=== PATIENT | male | born 1950 | race Caucasian/White ===

== ENCOUNTER 2016-10-31 11:56 | Emergency (ER) | payer MEDICARE, OTHER ==
[2016-10-31 12:11] VITALS: BP 119/70
[2016-10-31] MEDS ORDERED: NORMAL SALINE 1,000 ML IV ONE (12:27)
--- OUTSIDE RECORDS SUMMARY | 2016-10-31 12:39 | XMS REPORT | Continuity of Care Document ---
:1950 Author Organization [facility] ([facility]) Address [address] [place] [address] Phone [phone] Care Team Providers Name Role Phone IshaElie Primary Care Provider [phone] Source Comments This disclosure is being made pursuant to the Care Everywhere program, applicable federal and state laws, and may not contain all informaitonavailable regarding this patient.[facility] ([facility]) Active Allergies and Adverse Reactions Allergen Noted Date Severity Reactions Comments Amoxicillin Urticaria (Hives) Current Medications Prescription Sig. Disp. Refills Start Date End Date Status levETIRAcetam (KEPPRA) Take 500 mg by Active 500 mg tablet mouth 2 times daily. Takes two 500mg tablets Q AM and three 500mg tablets Q PM. sildenafil (VIAGRA) 50 Take 50 mg by Active mg tablet mouth as needed. Take 1 hour prior to sexual activity. captopril 12.5 mg Take 12.5 mg by Active tablet mouth [address] 0.4 mg Active (NITROSTAT) 0.4 mg SL under the tongue tablet every 5 minutes as needed. MULTIVITAMIN PO Take 1 Tab by Active mouth daily. MULTIVITAMIN WITH Take by mouth. Active MINERALS (HAIR,SKIN & NAILS PO) omega-3 fatty acids 1 Take 2 g by mouth Active gram capsule 2 times daily. aspirin 81 mg EC tablet Take 81 mg by Active mouth daily. ascorbic acid (vitamin Take 500 mg by Active C) (VITAMIN C WITH EMILY mouth daily. 4 HIPS) 500 mg tablet daily escitalopram oxalate 10 Take 10 mg by Active mg tablet mouth daily. atorvastatin 40 mg Take 1 tablet (40 30 tablet 11 09/10/2016 Active tablet mg total) by mouth daily. Active Problems Problem Noted Date Coronary artery disease 02/27/2013 Essential hypertension, benign 02/27/2013 Chest pain 12/02/2012 Unspecified transient cerebral ischemia 05/17/2006 Unspecified intracranial hemorrhage 11/25/2005 Most Recent Encounters Date Type Specialty Providers Description 09/03/2016 Refill Heart and Vascular Anny Charles RN Dx: Hypercholesterolemia (Primary Dx) Social History Tobacco Use Types Packs/Day Years Used Date Former Smoker Cigarettes 2 16 Quit: 12/16/1980 Smokeless Tobacco: Never Used Alcohol Use Drinks/Week oz/Week Comments Yes 14 Cans of beer 7.0 Last Filed Vital Signs Vital Sign Reading Time Taken Blood Pressure 139/70 04/24/2016 10:26 AM CDT Pulse 68 04/24/2016 10:26 AM CDT Temperature 36.7 C (98.1 F) 03/23/2014 11:15 AM CDT Respiratory Rate 18 12/03/2012 8:46 AM CDT Height 1.728 m (5' 8.03") 03/23/2014 11:15 AM CDT Weight 90.7 kg (199 lb 15.3 oz) 04/24/2016 10:26 AM CDT Body Mass Index 30.38 04/24/2016 10:26 AM CDT Oxygen Saturation 97% 03/23/2014 11:15 AM CDT Plan of Care Health Maintenance Due Date Last Done Comments HCV Screening 1950 Hepatitis B Vaccine (1 of 3 - Primary Series) 1950 Tdap Vaccine 1960 Td Vaccine 1967 Colonoscopy 1999 Prostate Cancer Screening 1999 Zoster Vaccine 2009 Lipid Disorder Screening 05/18/2011 05/18/2006 Pneumococcal Vaccine (1 of 2 - PCV13) 2014 Influenza Vaccine: Seasonal (#1) 02/10/2016 Results from Last 3 Months Not on file
--- OUTSIDE RECORDS SUMMARY | 2016-10-31 12:39 | XMS REPORT | Continuity of Care Document ---
:1950 Author Organization [facility] [place] [address] Care Team Providers Name Role Phone Elie Vieira Primary Care Provider [phone] Source Comments This disclosure is being made pursuant to the [employer] program and maynot contain all information available regarding this patient.[facility] Active Allergies and Adverse Reactions Allergen Noted Date Severity Reactions Comments Amoxicillin 08/26/2016 Unknown Current Medications Be aware that medications may not be up to date as of this document. Alwaysverify current medications with the patient. Prescription Sig. Disp. Refills Start Date End Date Status lisinopril Take 10 mg by Active (PRINIVIL,ZESTRIL) mouth daily. 10 MG tablet escitalopram Take 10 mg by Active (LEXAPRO) 10 MG mouth daily. tablet levETIRAcetam Take 500 mg by Active (KEPPRA) 500 MG mouth 2 (two) tablet times daily. atorvastatin Take 40 mg by Active (LIPITOR) 40 MG mouth daily. tablet aspirin 81 MG EC Take 81 mg by Active tablet mouth daily. VOLTAREN 1 % GEL Apply 2 g 100 g 3 09/09/2016 Active topically 4 (four) times daily. traMADol (ULTRAM) TAKE ONE TABLET 90 tablet 0 10/21/2016 Active 50 MG tablet BY MOUTH THREE TIMES DAILY NEEDED FOR PAIN zolpidem (AMBIEN) Take 1 tablet 30 tablet 0 10/29/2016 Active 10 MG tablet (10 mg total) by mouth nightly as needed for Sleep. traMADol (ULTRAM) Take 1 tablet 90 tablet 0 08/20/2016 Discontinued 50 MG tablet (50 mg total) 7 by mouth 3 (three) times daily as needed for Pain. Active Problems Problem Noted Date Back pain 09/03/2016 Coronary artery disease Hypercholesterolemia Most Recent Encounters Date Type Specialty Providers Description 10/29/2016 Office Visit Family Medicine Elie Vieira, Coronary artery disease MD with angina pectoris, unspecified vessel or lesion type, unspecified whether [facility] or transplanted heart (HCC) (Primary Dx); Hypercholesterolemia; Drowsiness 10/21/2016 Refill Family Elie Correa MD 09/16/2016 Orders Only Provider, Not In System 09/09/2016 Refill Family Medicine Jocelyn Baeza, RMA 09/08/2016 Refill Family Medicine Jocelyn Baeza, RMA 09/08/2016 Telephone Family Medicine Rita Raza RN Referral - Referral to [facility] initiated. Shayna from PT to call and schedule patient's initial appointment per Jennifer. Jake Lara RN. 09/04/2016 Refill Family Medicine Jocelyn Baeza, RMA 09/03/2016 Office Visit Family Elie Correa, June midline thoracic MD back pain (Primary Dx) 09/03/2016 Refill Family Medicine Fina Kaur, [employer] 08/26/2016 Abstract Family Medicine Jocelyn Baeza, RMA 08/20/2016 Refill Family Medicine Natasha Fina A, [employer] Social History Tobacco Use Types Packs/Day Years Used Date Never Smoker Alcohol Use Drinks/Week oz/Week Comments Yes social basis Last Filed Vital Signs Vital Sign Reading Time Taken Blood Pressure 106/66 10/29/2016 3:28 PM CDT Pulse 63 10/29/2016 3:28 PM CDT Temperature 36 C (96.8 F) 10/29/2016 3:28 PM CDT Respiratory Rate 16 10/29/2016 3:28 PM CDT Height 1.829 m (6') 10/29/2016 3:28 PM CDT Weight 90.357 kg (199 lb 3.2 oz) 10/29/2016 3:28 PM CDT Body Mass Index 27.01 10/29/2016 3:28 PM CDT Oxygen Saturation 95% 10/29/2016 3:28 PM CDT Plan of Care Date Type Specialty Providers Description 04/29/2017 [place] [address] [place] [phone] (Fax) Health Maintenance Due Date Last Done Comments Hepatitis C Screening 1967 Tetanus/Pertussis (1 - Tdap) 1968 Well Adult Visit 1999 Zoster Vaccine 60+ 2009 Pneumococcal Low/Medium Risk 65+ (1 of 2 - PCV13) 2014 Influenza Immunization (#1) 2016 Colonoscopy 05/24/2023 05/24/2013 Results from Last 3 Months Lipid panel (10/29/2016) Component Value Range Cholesterol 115Comment:Cholesterol preferred <200 mg/dL. 0-200 mg/dL Clinical correlation is essential. Triglycerides 155 0-200 mg/dL HDL Cholesterol 47(L) >60 mg/dL LDL Calculated 37.0Comment: mg/dL <100Optimal 100-129 Near Optimal/Above Optimal 130-159 Borderline High 160-189 High >pq=502Ofrj High Cholesterol/HDL Ratio 2.4 Narrative Testing performed at [facility], [address] [place] [address].C[employer] Programmer Domingo Waddell MD Comprehensive metabolic panel (10/29/2016) Component Value Range Glucose 91Comment: 60-100 mg/dL Fasting Plasma Glucose (FPG)<100 MG/DL Impaired Fasting Glucose (IFG) 100-125 MG/DL Provisional Diagnosis of Diabetes Mellitus > kb=871 MG/DL (Diagnosis Must Be Confirmed) BUN, Blood 11 8-26 mg/dL Creatinine 1.0 0.7-1.4 mg/dL Glomerular Filtration Rate 74(L) >80 mL/min/1.73mm2 Estimate Glomerlular Filtration Rate 85Comment:The estimated GFR has >80 mL/min/ 1.73mm2 Estimate- not been validated for women or patients with serious comorbid conditions, or with extremes of body size, muscle mass, or nutritional status. Calcium 8.8 8.4-10.2 mg/dL Sodium 141 136-145 mmol/L Potassium 4.0 3.4-4.9 mmol/L Chloride 107 99-111 mmol/L CO2 25.0 21.0-32.0 mmol/L Albumin 3.4(L) 3.5-5.0 g/dL Total Protein 6.5 6.1-8.0 g/dL Bilirubin Total 0.5 0.2-1.2 mg/dL Alkaline Phosphatase 72 40-150 U/L AST 27 5-34 U/L ALT 25 0-55 u/L Narrative Testing performed at [facility], [address] [place] [address].Cnc Programmer Domingo Waddell MD CBC auto differential (10/29/2016) Component Value Range WBC 4.5 3.1-11.0 x10^3/uL RBC 4.83 4.29-5.55 x10^6/uL Hemoglobin 13.8 13.3-16.5 g/dL Hematocrit 42.1 39.2-48.0 % MCV 87.2 81.0-98.0 fL MCH 28.6 27.2-33.3 pg MCHC 32.8 31.7-35.6 g/dL RDW 14.2(H) 11.4-13.6 % SD-RDW 45.1 36.4-46.3 fL Platelets 179 147-370 x10^3/uL MPV 11.3 9.1-12.1 fL NE% 55.2 42.0-76.0 % %LYMPH 29.7 15.0-44.0 % %MONO 11.2 4.0-13.0 % % Eosinophils 3.3 0.0-6.0 % % Basophils 0.4 0.0-1.0 % Imm Gran Relative 0.2 0.0-1.0 % NE# 2.5 1.2-7.3 x10^3/uL Lymphs # 1.4 0.6-3.5 x10^3/uL Owsley# 0.5 0.2-0.9 x10^3/uL Eosinophil # 0.2 0.0-0.4 x10^3/uL Baso# 0.0 0.0-0.1 x10^3/uL Imm Gran Absolute 0.01 0.00-0.10 x10^3/uL Specimen BLOOD Narrative Testing performed at [facility], [address] [place] [address].Cnc Programmer Domingo Waddell MD
[2016-10-31 12:42] LABS: Hematocrit 42.4 % (42.0-52.0); Hemoglobin 13.7 gm/dL (13.5-18.0); Mean Cell Volume 87.2 fl (78-100); Mean Corpuscular Hemoglobin 28.2 pg (27-31); Mean Corpuscular Hgb Conc 32.3 g/dl (32-36); Mean Platelet Volume 9.9 fl (6.0-9.5); Neutrophil # 10.4 K/mm3 (1.3-6.0); Neutrophil % 88.7 % (42-75.0); Platelet Count 149 K/mm3 (150-450); Red Blood Count 4.86 M/mm3 (4.7-6.0); Red Cell Distribution Width 13.9 % (11.5-14.0); White Blood Count 11.7 K/mm3 (4.0-10.5)
--- NOTE | 2016-10-31 12:52 | ERNOTE ---
Syncope ER HPI Date of Service: 10/31/16 Stated Complaint: NEAR SYNCOPE Time Seen by Provider: 10/31/16 12:22 Source: patient, family Exam Limitations: no limitations Immunizations: IMMUNIZATION HX Immunizations Up to Date No Allergies/Adverse Reactions: Allergies amoxicillin [Amoxicillin] Allergy (Verified 04/27/13 22:10) Hives Home Medications: HOME MEDICATIONS Captopril 12.5 mg PO BID 04/27/13 [Last Taken 04/27/13] Escitalopram Oxalate [Lexapro] 10 mg PO DAILY 04/27/13 [Last Taken 04/27/13] Metoprolol Tartrate [Lopressor] 25 mg PO BID 04/27/13 [Last Taken 04/27/13] Prasugrel HCl [Effient] 10 mg PO DAILY 04/27/13 [Last Taken 04/27/13] levETIRAcetam [Keppra] 1,000 mg PO QAM 04/27/13 [Last Taken 04/27/13] levETIRAcetam [Keppra] 1,500 mg PO QPM 04/27/13 [Last Taken 04/27/13] - History of Present Illness Narrative: Patient was lifting some thing and suddenly developed lightheadedness and passed out. Patient was seen at another facility and was send for further evaluation. Patient was reported with a low blood pressure. Patient at the moment denies any chest pain and no headache. Patient had no seizure. Patient reported that he did use some alcohol, but not more than a beer. Prior Episodes: Present: single episode today Symptoms prior to episode: Present: light headedness. Absent: diaphoresis, nausea, rapid heart rate, headache, chest pain Activity at time of episode: Present: other - Patient was lifting and moving things Character of event: Present: no loss of consciousness. Absent: seizure activity observed Location of Injury: Present: none Current Symptoms: Present: back to normal. Absent: blurred vision, chest pain, shortness of breath, abd pain, nausea, vomiting, light headedness, dizziness, headache Prior Treament: Denies: recently seen Review of Systems - Review of Systems Constitutional: Absent: recent illness, fever, chills, diaphoresis, weakness, fatigue, malaise, weight loss, fussy EYE: Present: no symptoms reported ENT: Present: no symptoms reported Respiratory: Absent: shortness of breath, cough, orthopnea Cardiology: Present: syncope. Absent: chest pain, palpitations, edema, claudication Gastrointestinal/Abdominal: Absent: nausea, vomiting, diarrhea Genitourinary: Present: no symptoms reported Musculoskeletal: Present: no symptoms reported Skin: Present: no symptoms reported Neurological: Present: dizziness/light-headedness. Absent: anxiety, depressed Endocrine: Present: no symptoms reported Hematologic/Lymphatic: Present: no symptoms reported Psych: Present: no symptoms reported All Other Systems: All systems neg except as marked - Patient's Past Medical History Patient History - Cardiac/Respiratory: Hypertension, Hyperlipidemia Patient History - Surgical Procedures: Cardiac stent - Social History Living Situations: home Smoking Status: Never smoker - Immunizations Immunizations Up to Date: No Physical Exam - Physical Exam General Appearance: Present: wd/wn, alert, no apparent distress Ears, Nose, Throat: Present: normal ENT inspection, normal pharynx, dry mucous membranes Neck: Present: normal inspection, nontender. Absent: carotid bruit Respiratory: Present: no respiratory distress, normal breath sounds, no accessory muscle use, chest nontender, lungs clear Cardiovascular/Chest: Present: regular rate, rhythm, no murmur, normal peripheral pulses, other - Well's: Low Proability, PARUL: Low Risk (Hx of CAD). Absent: JVD Gastrointestinal/Abdominal: Present: normal bowel sounds, nontender, nondistended, soft, no organomegaly Back Exam: Present: normal inspection, normal range of motion, no CVA tenderness , no vertebral tenderness Extremity Exam: Present: normal inspection, non-tender, normal range of motion, no edema Neurological Exam: Present: alert, oriented, normal mood/affect, no motor/ sensory deficits, other - GCS: 15/15, NIH Stroke Scale: 0 Skin Exam: Present: normal color, warm/dry Lymphatic Exam: Present: no adenopathy ED Progress - Date and Time Seen: Date and Time: 10/31/16 12:50 Patient at the moment with a syncopal event. Patient was found with hypotension. Patient will be given hydration and will be done work up. 10/31/16 13:19 Patient does has a mild drop on BP on standing, but does not meat criteria for orthodontics changes. Patient at the moment does not want IV Fluids and wants to go home. Patient has a negative work up. No ST changes on EKG and negative Troponin. Patient's event and finding of low blood pressure point out to orthostatic hypotension. Patient will rest and hydrate. Patient will follow up with his PCP. Patient with no Headache, no visual changes, no gross neurologic deficits, no chest pain, and has a full mental status. Patient has a good social support system. - Results and Orders Patient's Lab Results:: I have reviewed the patient's lab results. Results and Orders: CBC: Elevated WBC CMP: WNL Trop: Negative INR: Normal - Vital Signs Patient's Vital Signs:: I have reviewed the patient's vital signs. Vital Signs: Vital Signs 10/31/16 12:04 Temperature 37.8 C H Pulse Rate 81 Respiratory 12 Rate Blood Pressure 119/70 O2 Sat by Pulse 96 Oximetry - EKG EKG: NSR EKG read: Interp. by me EKG Comments: No ST Elevation, HR: 92, No changes from previous EKG trace. - X-Ray X-Ray #1 X-Ray: chest Interpretation: Interp. by me X-ray Comments: No mediastinal widening, no infiltrates and no consolidates - Progress/Reassessment Chief Complaint: Syncopal Episode Progress:: Improved - Transfer of Care Expected Disposition: Discharge Plan - Plan Plan: Patient will be evaluated for syncope at ER Patient will follow up with his PCP and will rest and get hydrated. Departure Clinical Impression: Orthostatic syncope - Departure Disposition: Home self-care Condition: Stable Instructions: Vasovagal Syncope, Adult, Orthostatic Hypotension Referrals: Elie Vieira MD [Primary Care Provider] -
[2016-10-31 12:53] LABS: INR 1.06 INR (0.90-1.10); Partial Thrombolplastin Time 27.2 Seconds (24-32)
[2016-10-31 12:58] LABS: ALT 31 U/L (19-67); AST 27 U/L (0-48); Albumin * 3.4 gm/dl (3.4-5.0); Alkaline Phosphatase * 69 U/L (50-170); Anion Gap 13.3 mmol/L (6.8-13.8); BUN/Creatinine Ratio 8.8 (9.0-21.6); Bilirubin, Total 1.5 mg/dL (0.0-1.1); Blood Urea Nitrogen 10 mg/dL (6-23); Ca. Corrected For Albumin 8.8 mg/dL (8.4-10.2); Calcium * 8.6 mg/dL (7.9-10.9); Carbon Dioxide 26.8 mmol/L (24-32.6); Chloride 103 mmol/L (97-106); Glucose * 101 mg/dL (70-110); Potassium 4.1 mmol/L (3.4-4.6); Sodium 139 mmol/L (132-142); Total Protein 6.8 gm/dL (6.2-8.2)
[2016-10-31 13:00] LABS: Troponin I Less than 0.017 ng/ml (0.00-0.10)
== END 2016-10-31 13:37 | disposition home or self-care (01) ==
LOC: ER 11:56
DX: I95.1 Orthostatic hypotension (principal)